=== PATIENT | female | born 1965 | race Caucasian/White ===

== ENCOUNTER 2019-11-30 18:22 | Emergency (ER) | payer OTHER ==
[2019-11-30 18:40] VITALS: BMI 32.4
[2019-11-30] MEDS ORDERED: ACETAMINOPHEN 1000 MG/100 ML VIAL (NON FORMULARY) IVPB ONE (18:41)
[2019-11-30] MEDS ORDERED: SODIUM CHLORIDE 1,000 ML IV STA (18:41)
--- NOTE | 2019-11-30 18:41 | PDOC ---
Rapid Medical Evaluation Time Seen by Provider: 11/30/19 18:36 Medical Evaluation: Allergies Allergy/AdvReac Type Severity Reaction Status Date / Time tramadol AdvReac Intermediate headache Verified 10/28/19 10:12 11/30/19 18:36 Pt presents for two days of body aches, chest pain, SOB and fever. Recently catheterized and had a "pin placed in the main artery". Exam: febrile, lungs CTAB Orders: labs, EKG, Influenza, IVF Pt to proceed to the ER for further evaluation Discharge Disposition - Diagnosis Fever - Referrals - Patient Instructions - Post Discharge Activity
[2019-11-30] MEDS ORDERED: ACETAMINOPHEN 325 MG TABLET (FP) PO ONE (18:44)
[2019-11-30 19:16] LABS: MCH 30.3 pg (25.7-33.7); WHITE BLOOD COUNT 6.1 K/mm3 (4.0-10.0)
[2019-11-30 19:20] LABS: BASO % 0.9 % (0-2.0); EOS % 2.7 % (0-4.5); HEMATOCRIT 40.5 % (32.4-45.2); HEMOGLOBIN 13.8 GM/dL (10.7-15.3); LYMPH % 7.7 % (8-40); MCHC 34.1 g/dl (32.0-36.0); MEAN CELL VOLUME 88.8 fl (80-96); MEAN PLT VOLUME 9.4 fl (7.5-11.1); MONO % 4.8 % (3.8-10.2); NEUT % 83.9 % (42.8-82.8); PLATELET COUNT 222 K/MM3 (134-434); RBC 4.56 M/mm3 (3.60-5.2); RDW 13.6 % (11.6-15.6)
[2019-11-30 19:52] LABS: ALBUMIN 3.7 g/dl (3.4-5.0); BILIRUBIN,TOTAL 0.3 mg/dL (0.2-1); BLOOD UREA NITROGEN 18.6 mg/dL (7-18); CALCIUM 8.8 mg/dL (8.5-10.1); POTASSIUM 3.7 mmol/L (3.5-5.1); TOT PROT 6.5 g/dl (6.4-8.2)
[2019-11-30] MEDS ORDERED: ACETAMINOPHEN INJECTION 100 ML IVPB ONE (20:44)
--- NOTE | 2019-11-30 21:07 | PDOC ---
History of Present Illness - General Chief Complaint: Cold Symptoms Stated Complaint: BACK PAIN Time Seen by Provider: 11/30/19 18:36 History Source: Patient Exam Limitations: No Limitations - History of Present Illness Initial Comments: 11/30/19 21:05 HISTORY OF PRESENT ILLNESS: 54-year-old woman with past medical history of left breast mass (currently in the progress of evaluation), CAD status post stent many years ago who presents emergency department for evaluation of fevers, chills, sore throat, body aches, anorexia over the past 2 days. Mother reports a mild cough which is not new for her as she is 1/2 pack a day daily smoker. She reports pain in bilateral ears which radiates to her throat. She denies any abdominal pain, nausea or vomiting. No recent travel or sick contacts. PAST MEDICAL HISTORY: See HPI SURGICAL HISTORY: Denies ALLERGIES: No known drug allergies REVIEW OF SYSTEMS General/Constitutional: +fever. Denies weakness, weight change. HEENT: Denies change in vision. Denies ear pain or discharge. +sore throat. Cardiovascular: Denies chest pain or shortness of breath. Respiratory: Moist productive cough. Denies wheezing, or hemoptysis. Gastrointestinal: Denies nausea, vomiting, diarrhea or constipation. Denies rectal bleeding. Genitourinary: Denies dysuria, frequency, or change in urination. Musculoskeletal: +myalgias. Denies neck or back pain. Skin and breasts: Denies rash or easy bruising. Neurologic: Denies headache, vertigo, loss of consciousness, or loss of sensation. Psychiatric: Denies depression or anxiety. Endocrine: Denies increased thirst. Denies abnormal weight change. Hematologic/Lymphatic: Denies anemia, easy bleeding, or history of blood clots. Allergic/Immunologic: Denies hives or skin allergy. Denies latex allergy. PHYSICAL EXAM General Appearance: Well-appearing, appropriately dressed. No apparent distress , no intoxication. HEENT: EOMI, PERRLA, normal voice, TMs retracted bilaterally. No conjunctival pallor. No photophobia, scleral icterus. Oropharynx erythematous without lesions or exudate. Cobblestoning noted in the posterior. No nasal discharge present. Neck: Supple. Trachea midline. No tenderness, rigidity, carotid bruit, stridor , or thyromegaly. Nontender anterior cervical lymphadenopathy present. Respiratory/Chest: Lungs CTAB. No shortness of breath, chest tenderness, respiratory distress, accessory muscle use. No crackles, rales, rhonchi, stridor , wheezing, dullness Cardiovascular: RRR. S1, S2. No JVD, murmur, bradycardia, tachycardia. Vascular Pulses: Dorsalis-Pedis (R): 2+, Dorsalis-Pedis (L): 2+ Gastrointestinal/Abdominal: Normal bowel sounds. Abdomen soft, non-distended. No tenderness or rebound tenderness. No organomegaly, pulsatile mass, guarding, hernia, hepatomegaly, splenomegaly. Musculoskeletal/Extremities: Normal inspection. FROM of all extremities, normal capillary refill. Pelvis Stable. No CVA tenderness. No tenderness to extremities, pedal edema, swelling, erythema or deformity. Integumentary: Appropriate color, dry, warm. 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 Fully oriented, alert. Appropriate mood/affect. Motor strength 5/5. No appreciable EOM palsy, facial droop or sensory deficit. Past History - Past Medical History Allergies/Adverse Reactions: Allergies Allergy/AdvReac Type Severity Reaction Status Date / Time tramadol AdvReac Intermediate headache Verified 11/30/19 18:37 Home Medications: Ambulatory Orders Albuterol Sulfate Inhaler - [Ventolin Hfa Inhaler -] 2 inh PO Q4H PRN 02/16/18 Aspirin [ASA -] 81 mg PO DAILY 02/16/18 Atorvastatin Calcium [Lipitor] 10 mg PO HS 02/16/18 Clonazepam [Klonopin] 1 mg PO BID 02/16/18 Fluticasone Propionate [Flovent Diskus] 250 mcg IH DAILY 02/16/18 Prochlorperazine Maleate 5 mg PO DAILY 02/16/18 Risperidone [Risperdal] 2 mg PO DAILY 02/16/18 Esomeprazole Magnesium 40 mg PO DAILY 03/10/18 Methadone HCl [Methadone Intensol] 12 mg PO DAILY 03/10/18 Diclofenac Sodium [Voltaren] 2 gm TP TID PRN #3 tube 04/29/19 Ergocalciferol (Vitamin D2) [Vitamin D2] 50,000 unit PO Q7D #4 capsule 09/07/19 Anemia: No Asthma: Yes Cancer: No Cardiac Disorders: Yes (history of stent 1999) CVA: No COPD: No CHF: No Diabetes: No GI Disorders: Yes (GERD) Disorders: No HTN: No Hypercholesterolemia: Yes (on meds) Liver Disease: No Seizures: No Thyroid Disease: No - Surgical History Cardiac Surgery: Yes (stent 1999) Orthopedic Surgery: Yes (broken jaw age 9) - Psycho Social/Smoking Cessation Hx Smoking History: Current some day smoker Number of Cigarettes Smoked Daily: 4 Information on smoking cessation initiated: No Hx Alcohol Use: No Drug/Substance Use Hx: No Substance Use Type: Heroin, Marijuana Hx Substance Use Treatment: Yes (methadone program, outpatient rehab) *Physical Exam - Vital Signs Last Vital Signs Temp Pulse Resp BP Pulse Ox 100.6 F H 105 H 20 134/89 99 11/30/19 18:37 11/30/19 18:37 11/30/19 18:37 11/30/19 18:37 11/30/19 18:37 ED Treatment Course - LABORATORY CBC & Chemistry Diagram: 11/30/19 18:50 11/30/19 18:50 - ADDITIONAL ORDERS Additional order review: Laboratory Results 11/30/19 18:50 Sodium 138 Potassium 3.7 Chloride 107 Carbon Dioxide 22 Anion Gap 9 BUN 18.6 H Creatinine 1.0 Est GFR (CKD-EPI)AfAm 72.93 Est GFR (CKD-EPI)NonAf 62.93 Random Glucose 131 H Calcium 8.8 Total Bilirubin 0.3 AST 12 L ALT 21 Alkaline Phosphatase 72 Total Protein 6.5 Albumin 3.7 11/30/19 18:50 RBC 4.56 MCV 88.8 MCHC 34.1 RDW 13.6 MPV 9.4 Neutrophils % 83.9 H Lymphocytes % 7.7 L Monocytes % 4.8 Eosinophils % 2.7 Basophils % 0.9 - Medications Given in the ED: ED Medications Discontinued Medications Generic Name Dose Route Start Last Admin Trade Name Freq PRN Reason Stop Dose Admin Acetaminophen 1,000 mg 11/30/19 18:41 11/30/19 20:07 Ofirmev Injection - IVPB 11/30/19 18:42 Not Given ONCE ONE Acetaminophen 975 mg 11/30/19 18:44 11/30/19 21:04 Tylenol - PO 11/30/19 18:45 975 mg ONCE ONE Administration Sodium Chloride 1,000 mls @ 1,000 mls/hr 11/30/19 18:41 11/30/19 21:04 Normal Saline - IV 11/30/19 19:40 1,000 mls/hr ASDIR STA Administration Medical Decision Making - Medical Decision Making 11/30/19 21:06 A/P: 54-year-old woman with 2 days of flulike symptoms Orders per [facility] Chest x-ray Rapid strep testing Reassess 11/30/19 23:33 Laboratory Tests 11/30/19 11/30/19 11/30/19 18:50 18:50 18:50 WBC 6.1 RBC 4.56 Hgb 13.8 Hct 40.5 MCV 88.8 MCH 30.3 MCHC 34.1 RDW 13.6 Plt Count 222 MPV 9.4 Absolute Neuts (auto) 5.2 Neutrophils % 83.9 H Lymphocytes % 7.7 L Monocytes % 4.8 Eosinophils % 2.7 Basophils % 0.9 Nucleated RBC % 0 Sodium 138 Potassium 3.7 Chloride 107 Carbon Dioxide 22 Anion Gap 9 BUN 18.6 H Creatinine 1.0 Est GFR (CKD-EPI)AfAm 72.93 Est GFR (CKD-EPI)NonAf 62.93 Random Glucose 131 H Calcium 8.8 Total Bilirubin 0.3 AST 12 L ALT 21 Alkaline Phosphatase 72 Total Protein 6.5 Albumin 3.7 Influenza A (Rapid) Negative Influenza B (Rapid) Negative Group A Strep Rapid 11/30/19 21:10 WBC RBC Hgb Hct MCV MCH MCHC RDW Plt Count MPV Absolute Neuts (auto) Neutrophils % Lymphocytes % Monocytes % Eosinophils % Basophils % Nucleated RBC % Sodium Potassium Chloride Carbon Dioxide Anion Gap BUN Creatinine Est GFR (CKD-EPI)AfAm Est GFR (CKD-EPI)NonAf Random Glucose Calcium Total Bilirubin AST ALT Alkaline Phosphatase Total Protein Albumin Influenza A (Rapid) Influenza B (Rapid) Group A Strep Rapid Negative Chest x-ray as read by me: Angle sharp. Lung swanson clear. Mild haziness present in the post cardiac space. No focal infiltrations or consolidations are present. Cardiac silhouette is within normal limits. Patient currently without a white count. Mild left shift likely due to viral illness. Influenza and group A strep are negative. Patient reports improvement after receiving medications is requesting discharge. I discussed the physical exam findings, ancillary test results and final diagnoses with the patient. I answered all of the patient's questions. The patient was satisfied with the care received and felt comfortable with the discharge plan and treatment plan. The patient will call their primary care physician within 24 hours to arrange follow-up and will return to the Emergency Department with any new, persistent or worsening symptoms. 12/01/19 01:53 Discharge - Discharge Information Problems reviewed: Yes Clinical Impression/Diagnosis: Systemic viral illness Condition: Fair Disposition: HOME - Admission No - Follow up/Referral Referrals: Rick Sampson MD [Primary Care Provider] - - Patient Discharge Instructions Additional Instructions: Rest, drink lots of fluids: Teas, water, soups, Pedialyte Saltwater gargles Steamy showers/seem to face break up mucus Avoid contact with others until fevers and cough resolved Lots of handwashing and good hygiene Continue [id number] medications for symptomatic relief Tylenol or Motrin for fever and pain Followup with private physician in one to 2 days as needed Return to emergency department for worsened symptoms, fevers, dehydration - Post Discharge Activity
[2019-11-30 23:24] VITALS: BP 122/85; PULSE 89; TEMP 98.1
--- NOTE | 2019-12-01 14:26 | EKG ---
Test Reason : Blood Pressure : / mmHG Vent. Rate : 095 BPM Atrial Rate : 095 BPM P-R Int : 146 ms QRS Dur : 080 ms QT Int : 356 ms P-R-T Axes : 051 037 079 degrees QTc Int : 447 ms NORMAL SINUS RHYTHM NONSPECIFIC ST AND T WAVE ABNORMALITY ABNORMAL ECG NO PREVIOUS ECGS AVAILABLE Confirmed by CAESAR KAHN MD ([id number]) on 12/01/2019 2:26:29 PM Referred By: Confirmed By:CAESAR KAHN MD
== END 2019-11-30 23:48 | disposition home or self-care (01) ==
LOC: JER 18:22
DX: B34.9 Viral infection, unspecified (principal); Z95.5 Presence of coronary angioplasty implant and graft; I25.10 Atherosclerotic heart disease of native coronary artery without angina pectoris; J45.909 Unspecified asthma, uncomplicated; K21.9 Gastro-esophageal reflux disease without esophagitis; E78.00 Pure hypercholesterolemia, unspecified; Z79.82 Long term (current) use of aspirin; Z88.8 Allergy status to other drugs, medicaments and biological substances
CPT/HCPCS: 36415; 71046-TC-FY; 80053; 85025; 87070; 87804; 87880; 93005; 93010; 99283-25; J7030